=== PATIENT | male | born 1985 | race African-American/Black ===

== ENCOUNTER 2018-03-13 06:19 | Emergency (ER) | payer SELFPAY ==
[~2018-03-13] VITALS: Ht 177.8 cm; Wt 102.0 kg
[2018-03-13] MEDS ORDERED: IBUPROFEN 600MG TABLET PO ONE (06:45)
[2018-03-13 08:10] VITALS: BP 131/85
== END 2018-03-13 08:10 | disposition home or self-care (01) ==
LOC: ER 06:19
DX: S90.32XA Contusion of left foot, initial encounter (principal); S90.02XA Contusion of left ankle, initial encounter; F17.200 Nicotine dependence, unspecified, uncomplicated; W52.XXXA Crushed, pushed or stepped on by crowd or human stampede, initial encounter; Y93.89 Activity, other specified; Y92.89 Other specified places as the place of occurrence of the external cause
CPT/HCPCS: 73610; 73630; 99284